=== PATIENT | male | born 1990 | race African-American/Black ===

== ENCOUNTER 2019-03-06 00:11 | Emergency (ER) | payer SELFPAY ==
[~2019-03-06] VITALS: Ht 188 cm; Wt 79.4 kg
[~2019-03-06 00:11] MED LIST: IBUPROFEN600 MG ORAL; NKM; TAMIFLU75 MG ORAL
[2019-03-06 00:25] VITALS: BP 125/82
--- NOTE | 2019-03-06 00:25 | NUR ---
ED Nurse Note: Patient walked in from home d/t headache and chills that started yesterday. No cough or fever. Patient reported vomiting x 1 yesterday. Patient aao x 4 and ambulatory. No acute distress noted.
--- NOTE | 2019-03-06 00:28 | NUR ---
ED Nurse Note: ERMD at bedside.
--- NOTE | 2019-03-06 00:33 | Emergency Room Report ---
History of Present Illness General Chief Complaint: Flu Like Symptoms Source: Patient Present Illness HPI Disclaimer: Please note that this report is being documented using [employer] technology. This can lead to erroneous entry secondary to incorrect interpretation by the dictating instrument. HPI: 28-year-old otherwise healthy male presents for evaluation of multiple complaints. The patient states he developed a headache this afternoon which has been persistent unrelenting. Denies any changes in his vision, coordination or level of consciousness. He has been feeling gradually worse over the past 24 hours. Yesterday he developed diffuse body aches, chills, nasal congestion, nonproductive cough, nausea, couple episodes of emesis. He did not receive a flu shot this year. No known sick contacts. He took some Tylenol approximately 4 hours ago without significant improvement. PMH: Denies PSH: Denies Allergies: Denies Social Hx: Denies Allergies: Coded Allergies: No Known Allergies (Unverified , 05/06/15) Nursing Documentation-PMH Past Medical History: No Stated History Review of Systems All Other Systems: negative except mentioned in HPI Physical Exam Vital Signs Date Time Temp Pulse Resp B/P (MAP) Pulse Ox O2 Delivery O2 Flow Rate FiO2 03/06/19 00:15 99.3 82 16 123/78 (93) 95 Room Air General: Awake and alert, no acute distress HEENT: NC/AT. EOMI. Neck: Supple, trachea midline. Mild lymph adenopathy in the anterior region. No stiffness. Cardiovascular: RRR. S1 and S2 normal. No murmur appreciated Resp: Normal work of breathing. No cough, wheezing or crackles appreciated Abdomen: Abdomen is soft, nondistended. Nontender Skin: Intact. No abrasions, laceration or rash over the exposed skin MSK: Normal tone and bulk. Moving all extremities. No obvious deformity. Neuro: Awake and alert. Mentating appropriately. Medical Decision Making Diagnostic Impression: Primary Impression: Viral syndrome ER Course 28-year-old male presents for evaluation of body aches, chills, vomiting, nausea and headaches. Presentation consistent with either influenza or other viral-like illness. Will send flu swabs, treat with NSAIDs, Zofran and if positive for flu treat with oseltamavir. He is otherwise well-appearing, afebrile, no acute distress and I find no signs on his pulmonary exam to suggest a pneumonia or other process occurring at this time. He has no meningismal signs. Do not believe he requires emergent labs or imaging at this time other than flu swab. Microbiology Date/Time Source Procedure Growth Status 03/06/19 00:30 Nasal Nares - Final Complete 03/06/19 00:30 Nasal Nares - Final Complete Reevaluation Time: 01:10 Last Vital Signs Date Time Temp Pulse Resp B/P (MAP) Pulse Ox O2 Delivery O2 Flow Rate FiO2 03/06/19 00:25 99.3 85 18 125/82 96 Room Air Reevaluation Impression Rapid flu negative. The patient is well-appearing and remains afebrile. Will be discharged home with symptomatic care. Discussed hand hygiene and contact precautions. He will follow-up as an outpatient. Discussed reasons to return to the emergency department. He understands and agrees with this treatment plan. Disposition: HOME, SELF-CARE Condition: Stable Naif Martin MD Mar 06, 2019 00:33
--- NOTE | 2019-03-06 01:06 | NUR ---
ED Nurse Note: ERMD at bedside
[2019-03-06 01:11] VITALS: BP 132/72
--- NOTE | 2019-03-06 01:11 | NUR ---
ER DISCHARGE NOTE: Pt is cleared for DC per ER provider, pt discharge and aftercare instructions provided, pt verbalized understanding. pt advised to follow up with pcp or return to ED if change in condition, pt verbalized understanding. Vital signs stable, ambulatory w/ steady gait, left w/ all belongings. ID band removed. Pt stable upon discharge.
== END 2019-03-06 01:11 | disposition home or self-care (01) ==
LOC: EMR 00:33
DX: B34.9 Viral infection, unspecified (principal)
CPT/HCPCS: 86710; 99282